=== PATIENT | female | born 1940 | race African-American/Black ===

== ENCOUNTER → 2018-09-10 | Outpatient (CLI) | payer OTHER, BC ==
[~2018-09-10] MED LIST: ASPIR 8181 MG PO; ASPIR-TRIN325 MG PO; ASPIRIN81 M2 PO; CALTRATE-600 W1 EACH PO; COUMADIN 5 MG TA5 M1 PO; FLUOCINONI0.05 %/30 TOP; HYDROCHLOROTHIA25 M2 PO; HYDROCHLOROTHIA50 MG PO; KEFLEX500 MG PO; LASIX 40 MG TAB40 M2 PO; LISINOPRIL40 MG PO; MOM PO; NORCO 5-325 TA1 EACH; NORCO 5-325 TA1 EACH PO; PACERONE 200 M200 M1 PO; PERCOCET PO; POLYSACCHARIDE PO; POTASSIUM20 PO; SENOKOT-S1 TA1 PO; UNICOMPLEX M TA1 TA1 PO; VERAPAMIL ER240 M1 PO; ZOCOR 20 MG TAB20 M1 PO
== END ==
LOC: RAD 01:14
DX: Z12.31 Encounter for screening mammogram for malignant neoplasm of breast (principal)

== ENCOUNTER → 2019-09-11 | Outpatient (CLI) | payer OTHER, BC | LOC: RAD 10:54 | DX: Z12.31 Encounter for screening mammogram for malignant neoplasm of breast (principal) ==

== ENCOUNTER → 2020-09-13 | Outpatient (CLI) | payer OTHER, BC | LOC: BC 08:32 | PROVIDERS: ATTEND Internal Medicine | DX: Z12.31 Encounter for screening mammogram for malignant neoplasm of breast (principal) ==

== ENCOUNTER → 2021-09-14 | Outpatient (CLI) | payer OTHER, BC | LOC: BC 10:43 | PROVIDERS: ATTEND Internal Medicine | DX: Z12.31 Encounter for screening mammogram for malignant neoplasm of breast (principal); N64.89 Other specified disorders of breast ==